=== PATIENT | male | born 1955 | race Two or more races ===

== ENCOUNTER 2022-03-25 00:47 | Inpatient (IN) | payer MEDICARE, OTHER ==
[~2022-03-25] VITALS: Ht 172.7 cm; Wt 76.2 kg
[2022-03-25] MEDS ORDERED: SENN-18 PO (01:18)
[2022-03-25] MEDS ORDERED: HYDR-4077 PO (01:18)
[2022-03-25] MEDS ORDERED: COLL30OI TOP (01:18)
[2022-03-25] MEDS ORDERED: CHOL100045 PO (01:18)
[2022-03-25] MEDS ORDERED: CARV25TA2 PO (01:18)
[2022-03-25] MEDS ORDERED: FAMO-132 PO (01:18)
[2022-03-25] MEDS ORDERED: POLY17PO52 PO (01:18)
[2022-03-25] MEDS ORDERED: ACET-2154 PO (01:18)
[2022-03-25] MEDS ORDERED: HYDR-3972 PO (01:18)
[2022-03-25] MEDS ORDERED: DORZ10DR10 EACHEYE (01:18)
[2022-03-25] MEDS ORDERED: ASPI81TA31 PO (01:18)
[2022-03-25] MEDS ORDERED: INSU100V7 SQ (01:18)
[2022-03-25] MEDS ORDERED: MULT-213 PO (01:18)
[2022-03-25] MEDS ORDERED: CALC-494 PO (01:18)
[2022-03-25] MEDS ORDERED: AMLO10TA59 PO (01:18)
[2022-03-25] MEDS ORDERED: ATOR20TA PO (01:18)
[2022-03-25] MEDS ORDERED: L. A1TAB16 PO (01:18)
[2022-03-25] MEDS ORDERED: FERR325T28 PO (01:18)
[2022-03-25] MEDS ORDERED: CLOP75TA33 PO (01:18)
[2022-03-25] MEDS ORDERED: MIRT-93 PO (01:18)
[2022-03-25] MEDS ORDERED: HYDR-894 PO (01:18)
--- NOTE | 2022-03-25 02:24 | NUR ---
pt placed in room 2a, pt came from [facility] and rehab pt had an unwitnessed fall. Was sent here by his primary md.
--- NOTE | 2022-03-25 03:32 | NUR ---
call to radiology for cat scan.
[2022-03-25 03:46] LABS: HEMATOCRIT 23.4 % (36.7-47.1); MEAN CORPUSCULAR HEMOGLOBIN 30.6 uug (23.8-33.4); MEAN CORPUSCULAR VOLUME 93.2 fL (73.0-96.2); PLATELET COUNT (AUTO) 312 K/uL (152-348)
[2022-03-25 03:50] LABS: CARBON DIOXIDE 19 mmol/L (21-32); CHLORIDE 104 mmol/L (98-107); CREATININE 2.7 mg/dL (0.6-1.3); GLUCOSE 169 mg/dL (74-106); POTASSIUM 4.7 mmol/L (3.5-5.1); UREA NITROGEN, BLOOD 66 mg/dL (7-18)
[2022-03-25 03:59] LABS: ALANINE AMINOTRANSFERASE 24 U/L (16-63); ALKALINE PHOSPHATASE 100 U/L (50-136); ASPARTATE AMINOTRANSFERASE 11 U/L (15-37); BILIRUBIN,DIRECT 0.1 mg/dL (0.0-0.2); BILIRUBIN,TOTAL 0.2 mg/dL (0.2-1.0); TOTAL PROTEIN, SERUM 7.4 g/dL (6.4-8.2)
--- NOTE | 2022-03-25 04:00 | NUR ---
pt taken to cat scan.
--- NOTE | 2022-03-25 04:12 | NUR ---
pt returned from cat scan.
--- NOTE | 2022-03-25 05:52 | NUR ---
Dr. Restrepo spoke with [facility] for admission.
[2022-03-25] MEDS ORDERED: DEXTROSE 50% 50 ML DISP.SYRIN IV PRN (06:00)
[2022-03-25] MEDS ORDERED: hydrALAZINE HCL 50 MG TABLET PO PRN (06:00)
[2022-03-25] MEDS ORDERED: IV NS 1000 ML 1,000 ML IV PRN (06:00)
[2022-03-25] MEDS ORDERED: ACETAMINOPHEN 325 MG TABLET PO PRN (06:00)
[2022-03-25] MEDS ORDERED: MIRALAX 17 GM POWD.PACK PO PRN (06:00)
[2022-03-25] MEDS ORDERED: ONDANSETRON 4 MG/2 ML VIAL IV PRN (06:00)
[2022-03-25] MEDS ORDERED: HYDROCODONE/APAP 5-325MG TABLET PO PRN (06:00)
[2022-03-25] MEDS ORDERED: MAGNESIUM HYDROXIDE 30 ML LIQUID UDC PO PRN (06:00)
[2022-03-25] MEDS ORDERED: INSULIN REGULAR, HUMAN 300 UNITS/3 ML VIAL SQ PRN (06:00)
[2022-03-25] MEDS ORDERED: ACETAMINOPHEN 325 MG TABLET-SA PATIENTS-PAIN ONLY PO PRN (06:00)
[2022-03-25] MEDS: CEFTRIAXONE 1 G in IV DEXTROSE 5% 50 ML IV SCH (06:15)
--- NOTE | 2022-03-25 06:35 | NUR ---
call to [facility] for Dr. Restrepo to give update on status of pt.
--- NOTE | 2022-03-25 06:40 | NUR ---
[facility] called back for Dr. Restrepo.
[2022-03-25] MEDS ORDERED: CEFTRIAXONE /D5W 50ML IVPB **ER PYXIS IV ONE (07:20)
[2022-03-25] MEDS: BLOOD SUGAR DIAGNOSTIC 1 EACH STRIP VI SCH ×4 (07:38→20:23)
--- NOTE | 2022-03-25 07:42 | NUR ---
PT WAS TRANSFERED TO ROOM #312. REPORT WAS GIVEN TO RN M/S.
[2022-03-25 08:00] VITALS: BP 133/64
--- NOTE | 2022-03-25 08:04 | NUR ---
ADMITTED FROM [facility] A 66 YO MALE WITH ADM DX OF SP MECHANICAL FALL AWAKE ALERT BUT CONFUSED X2. DENIES PAIN, NO SIGNS OF DISTRESS. ADMISSION ASSESSMENT INITIATED
[2022-03-25] MEDS: SENNOSIDES 1 TABLET PO SCH ×2 (08:55→16:41)
[2022-03-25] MEDS: AMLODIPINE 10 MG TABLET PO SCH (08:55)
[2022-03-25] MEDS: ACIDOPHILUS/BULGARICUS CHEW TAB PO SCH (08:55)
[2022-03-25] MEDS: PANTOPRAZOLE SODIUM 40 MG VIAL IV SCH (08:55)
[2022-03-25] MEDS: CALCIUM CARBONATE 500 MG TABLET PO SCH (08:55)
[2022-03-25] MEDS: IV NS 1000 ML 1,000 ML IV SCH ×2 (08:56→20:15)
[2022-03-25] MEDS: MULTIVIT, IRON, MIN NO. 8, FA TABLET PO SCH (08:56)
[2022-03-25] MEDS: CARVEDILOL 25 MG TABLET PO SCH ×2 (08:56→16:42)
[2022-03-25] MEDS: REMEDY ESSENTIAL ZINC PASTE 113 GM TP PRN (08:57)
[2022-03-25] MEDS ORDERED: ASPIRIN 81 MG TAB.CHEW PO SCH (09:00)
[2022-03-25] MEDS ORDERED: CHOLECALCIFEROL 1,000 UNIT TABLET PO SCH (09:00)
[2022-03-25] MEDS ORDERED: Medication Not On Formulary EA (Multivitamins W-Minerals (Multivitamin With Minerals) 1 PO SCH (09:00)
[2022-03-25] MEDS ORDERED: CLOPIDOGREL 75 MG TABLET PO SCH (09:00)
[2022-03-25] MEDS ORDERED: Medication Not On Formulary EA (Cholecalciferol (Vitamin D3) (Vitamin D3) 1 CAP) PO SCH (09:00)
[2022-03-25] MEDS ORDERED: [UNRECOGNIZED DRUG - OTHER] PO SCH (09:00)
[2022-03-25] MEDS: DORZOLAMIDE 2% OPHT DROP 10 ML BOTTLE EACHEYE SCH ×2 (11:15→20:11)
[2022-03-25] MEDS: INSULIN REGULAR, HUMAN 300 UNIT/3 ML VIAL SQ PRN ×2 (11:44→16:43)
[2022-03-25 12:00] VITALS: BP 136/50
--- NOTE | 2022-03-25 12:45 | NUR ---
SPEECH EVAL COMPLETED PER ST OK TO START ON SOFT DIET AND THIN LIQUID
--- NOTE | 2022-03-25 13:04 | NUR ---
WOUND CARE CONSULT: PT EATING AT THIS TIME. REVIEWED CHART, NURSING DOCUMENTATION AND PHOTOS WHICH INDICATE LEFT HEEL WOUND AND SACRAL SCAR, PRESENT ON ADMISSION. CONSULT CALLED TO DR MCGRAW. RECOMMENDATIONS MADE FOR SKIN PROTECTION. DISCUSSED WITH NURSING STAFF. IN AGREEMENT WITH PLAN OF CARE. Addendum: 03/25/22 at 1308 by SIMA FERNANDEZ RN EXCORIATION NOTED TO RT HIP AREA ADMISSION PHOTOS.
[2022-03-25 16:00] VITALS: BP 135/54
--- NOTE | 2022-03-25 17:12 | NUR ---
RESULTS OF REPEAT CT HEAD DONE, NEURO STATUS REMAINS UNCHANGED. RESPONDING WELL VERBALLY KNOWS ON HIS NAME, DENIES MEJÍA OR NO C/O NV. BP 112/47 COREG HELD.. CONTINUE TO OBSERVE
[2022-03-25 17:59] LABS: *OCCULT BLOOD STOOL NEGATIVE (NEGATIVE)
[2022-03-25 20:00] VITALS: BP 117/48
[2022-03-25] MEDS: ATORVASTATIN 20 MG TABLET PO SCH (20:11)
[2022-03-25] MEDS: MIRTAZAPINE 15 MG TABLET PO SCH (20:11)
[2022-03-25 21:09] LABS: HEMATOCRIT 22.1 % (36.7-47.1)
[2022-03-26] VITALS (9 sets, daily range): BP systolic 119–151; BP diastolic 47–79
--- NOTE | 2022-03-26 05:26 | NUR ---
Slept throughout the night. Denies SOB or pain. IV site intact. Able to collect urine sample, sent to lab. Tolerated all medications given. Safety maintained throughout the shift. Will endorse to day shift.
[2022-03-26] MEDS: CEFTRIAXONE 1 G in IV DEXTROSE 5% 50 ML IV SCH (06:08)
[2022-03-26] MEDS: IV NS 1000 ML 1,000 ML IV SCH ×2 (06:08→17:36)
[2022-03-26] MEDS: BLOOD SUGAR DIAGNOSTIC 1 EACH STRIP VI SCH ×4 (06:30→21:36)
[2022-03-26 07:10] LABS: MEAN CORPUSCULAR HEMOGLOBIN 31.1 uug (23.8-33.4); PLATELET COUNT (AUTO) 296 K/uL (152-348)
[2022-03-26 07:20] LABS: HEMATOCRIT 19.9 % (36.7-47.1)
[2022-03-26 07:21] LABS: *BILIRUBIN,URIN NEGATIVE (NEGATIVE); *BLOOD, URINE NEGATIVE (NEGATIVE); *CLARITY,URINE CLEAR (CLEAR); *COLOR,URINE YELLOW (YELLOW); *KETONES,URINE NEGATIVE (NEGATIVE); *UROBILINOGEN,URINE 0.2 E.U./dl (NORMAL); LEUKOCYTE ESTERASE ,URINE NEGATIVE (NEGATIVE); NITRITE, URINE NEGATIVE (NEGATIVE); UGLUCOSE NEGATIVE (NEGATIVE)
[2022-03-26 07:33] LABS: BILIRUBIN,TOTAL 0.1 mg/dL (0.2-1.0); CREATININE 2.5 mg/dL (0.6-1.3); MAGNESIUM 1.9 mg/dL (1.8-2.4); PHOSPHOROUS 3.7 mg/dL (2.5-4.9); POTASSIUM 4.9 mmol/L (3.5-5.1); TOTAL PROTEIN, SERUM 6.6 g/dL (6.4-8.2)
[2022-03-26 07:46] LABS: *CREATININE,URINE 59.5 mg/dL (30-125); *URINE TOTAL PROTEIN RANDOM 110.7 mg/dL (<150/24HR)
--- NOTE | 2022-03-26 07:56 | NUR ---
DR CASILLAS NOTIFIED OF LOW HH WITH ORDER TO TRANSFUSE 1 UNIT PRBC
--- NOTE | 2022-03-26 08:00 | NUR ---
AWAKE ALERT AND VERBALLY RESPONSIVE BUT REMAINS CONFUSED X3 DENIES PAIN OR SOB. WILL CONTINUE TO OBSERVE
[2022-03-26] MEDS: ACIDOPHILUS/BULGARICUS CHEW TAB PO SCH (08:43)
[2022-03-26] MEDS: MULTIVIT, IRON, MIN NO. 8, FA TABLET PO SCH (08:43)
[2022-03-26] MEDS: CALCIUM CARBONATE 500 MG TABLET PO SCH (08:43)
[2022-03-26] MEDS: SENNOSIDES 1 TABLET PO SCH ×2 (08:43→16:39)
[2022-03-26] MEDS: CARVEDILOL 25 MG TABLET PO SCH ×2 (08:44→17:12)
[2022-03-26] MEDS: AMLODIPINE 10 MG TABLET PO SCH (08:44)
[2022-03-26] MEDS: REMEDY ESSENTIAL ZINC PASTE 113 GM TP PRN (08:45)
[2022-03-26] MEDS: PANTOPRAZOLE SODIUM 40 MG VIAL IV SCH ×2 (08:47→21:16)
[2022-03-26] MEDS: CHOLECALCIFEROL 1,000 UNIT TABLET PO SCH (08:47)
[2022-03-26] MEDS: DORZOLAMIDE 2% OPHT DROP 10 ML BOTTLE EACHEYE SCH ×2 (08:48→21:16)
[2022-03-26] MEDS ORDERED: INSULIN REGULAR, HUMAN 300 UNITS/3 ML VIAL SQ PRN (09:45)
[2022-03-26] MEDS ORDERED: DEXTROSE 50% 50 ML DISP.SYRIN IV PRN (09:45)
--- NOTE | 2022-03-26 11:45 | NUR ---
TRIED TO REACH DAUGHTER AGAIN FOR THE THIRD TIME REGARDING BLOOD TRANSFUSION CONSENT AWAITING CALL. BACK. DR CASILLAS CALLED WITH ORDER TO GIVE BLOOD A MEDICAL NECESSITY
[2022-03-26] MEDS: INSULIN REGULAR, HUMAN 300 UNIT/3 ML VIAL SQ PRN ×2 (11:59→21:33)
--- NOTE | 2022-03-26 12:00 | NUR ---
TRIED TO REACH SON TO HELP GET HOLD OF SISTER DARIN AND SAID WILL CALL BACK
--- NOTE | 2022-03-26 12:32 | NUR ---
BLOOD TRANSFUSION STARTED ORDERED CLOSELY MONITORED
--- NOTE | 2022-03-26 12:46 | NUR ---
DAUGHTER DARIN CALLED AND GAVE CONSENT FOR BLOOD TRANSFUSION WITNESS BY CHARGE NURSE
--- NOTE | 2022-03-26 12:56 | NUR ---
NO BLOOD TRANSFUSIONREACTION NOTED WILL CONTINUE TX AND OBSERVE
--- NOTE | 2022-03-26 16:00 | NUR ---
BLOOD TRANSFUSION COMPLETED WITHOUT REACTION
[2022-03-26 16:29] LABS: HEMATOCRIT 26.5 % (36.7-47.1)
--- NOTE | 2022-03-26 17:12 | NUR ---
COREG GIVEN WITH SIPS OF WATER. BP 157/61, HR=67
--- NOTE | 2022-03-26 18:31 | NUR ---
PATIENT WENT O OR FOR EGD ACCOMPANIED BY OR STAFF
[2022-03-26] MEDS ORDERED: PROPOFOL 200 MG/20 ML BOTTLE IV ONE (19:22)
[2022-03-26] MEDS ORDERED: LIDOCAINE-MPF 2% 5 ML VIAL IJ ONE (19:22)
--- NOTE | 2022-03-26 20:00 | NUR ---
patient arrived from OR, fully awake, alert and oriented x4, on oxygen via nasal cannula titrated to 2L saturating at 100%. Normal saline administered at 90cc/hr as ordered. Kept NPO as ordered except medications, to start on regular diet tomorrow as ordered. Routine post op care done.
[2022-03-26 21:07] LABS: HEMATOCRIT 26.1 % (36.7-47.1)
[2022-03-26] MEDS: ATORVASTATIN 20 MG TABLET PO SCH (21:17)
[2022-03-26] MEDS: MIRTAZAPINE 15 MG TABLET PO SCH (21:17)
[2022-03-26] MEDS: METOCLOPRAMIDE HCL 10 MG/2 ML VIAL IV SCH (21:18)
[2022-03-27 04:22] VITALS: BP 151/63
[2022-03-27] MEDS: IV NS 1000 ML 1,000 ML IV SCH (04:36)
[2022-03-27] MEDS: CEFTRIAXONE 1 G in IV DEXTROSE 5% 50 ML IV SCH (05:37)
[2022-03-27] MEDS: METOCLOPRAMIDE HCL 10 MG/2 ML VIAL IV SCH (05:44)
[2022-03-27] MEDS: AMLODIPINE 10 MG TABLET PO SCH ×2 (05:49→08:24)
[2022-03-27] MEDS: BLOOD SUGAR DIAGNOSTIC 1 EACH STRIP VI SCH ×4 (06:28→21:31)
--- NOTE | 2022-03-27 06:38 | NUR ---
Slept well, no shortness of breath within the shift, on room air since post op, saturating above 95%, Started to drink small amount of water with medications,. tolerated well. Dressing of gangrenous wound at left heel done with Ns, xeroform and kerlex bandage.
[2022-03-27 06:55] LABS: HEMATOCRIT 24.7 % (36.7-47.1)
[2022-03-27] MEDS ORDERED: PANTOPRAZOLE SODIUM 40 MG TABLET.DR PO SCH ×2 (07:00→10:45)
--- NOTE | 2022-03-27 08:00 | NUR ---
AWAKE ALERT AND VERBALLY RESPONSIVE ON OCCASION NO SS OF PAIN OR DISTRESS. CONTINUE PLAN OF CARE WOUND CARE AND IV ANTIBIOTIC
[2022-03-27] MEDS: CHOLECALCIFEROL 1,000 UNIT TABLET PO SCH (08:23)
[2022-03-27] MEDS: ACIDOPHILUS/BULGARICUS CHEW TAB PO SCH (08:24)
[2022-03-27] MEDS: CALCIUM CARBONATE 500 MG TABLET PO SCH (08:24)
[2022-03-27] MEDS: MULTIVIT, IRON, MIN NO. 8, FA TABLET PO SCH (08:24)
[2022-03-27] MEDS: PANTOPRAZOLE SODIUM 40 MG VIAL IV SCH (08:27)
[2022-03-27] MEDS: DORZOLAMIDE 2% OPHT DROP 10 ML BOTTLE EACHEYE SCH ×2 (08:27→21:28)
[2022-03-27] MEDS: SENNOSIDES 1 TABLET PO SCH ×2 (08:28→17:24)
[2022-03-27] MEDS: REMEDY ESSENTIAL ZINC PASTE 113 GM TP PRN (08:29)
[2022-03-27] MEDS ORDERED: PERMETHRIN 5% CREAM 60 GM TUBE TP ONE (09:00)
[2022-03-27] MEDS: CARVEDILOL 25 MG TABLET PO SCH ×2 (10:48→17:24)
[2022-03-27 11:34] VITALS: BP 109/47
--- NOTE | 2022-03-27 12:00 | NUR ---
NO ACUTE CHANGE FROM MORNING ASSESSMENT
[2022-03-27] MEDS: METOCLOPRAMIDE HCL 5 MG TABLET PO SCH ×2 (12:03→17:24)
[2022-03-27] MEDS: INSULIN REGULAR, HUMAN 300 UNIT/3 ML VIAL SQ PRN ×3 (12:06→21:34)
[2022-03-27 13:16] LABS: HEMATOCRIT 25.7 % (36.7-47.1)
--- NOTE | 2022-03-27 13:40 | NUR ---
SEEN BY DR VERDE FOR WOUND CONSULT SEE NOTES
[2022-03-27] MEDS: VANCOMYCIN IV 750 MG in IV DEXTROSE 5% 250 ML IV SCH (14:14)
[2022-03-27] MEDS: MEROPENEM 1 G in IV NORMAL SALINE 100 ML IV SCH (14:14)
[2022-03-27 15:30] VITALS: BP 117/41
[2022-03-27] MEDS: PANTOPRAZOLE SODIUM 40 MG TABLET.DR PO SCH (17:24)
--- NOTE | 2022-03-27 17:50 | NUR ---
STARTED ON MERREM AND VANCO NO SS OF ALLERGY REACTION
[2022-03-27 20:17] LABS: HEMATOCRIT 26.1 % (36.7-47.1)
[2022-03-27] MEDS: MIRTAZAPINE 15 MG TABLET PO SCH (21:27)
[2022-03-27] MEDS: ATORVASTATIN 20 MG TABLET PO SCH (21:28)
[2022-03-27 21:30] VITALS: BP 140/60
[2022-03-28] MEDS: MEROPENEM 1 G in IV NORMAL SALINE 100 ML IV SCH ×2 (01:18→14:34)
[2022-03-28 04:52] VITALS: BP 136/56
[2022-03-28 06:06] LABS: A/G RATIO 0.6 (0.7-1.7); ALBUMIN 2.1 g/dL (2.9-4.4); ALPHA-1-GLOBULIN 0.3 g/dL (0.0-0.4); ALPHA-2-GLOBULIN 0.9 g/dL (0.4-1.0); GAMMA GLOBULIN 1.4 g/dL (0.4-1.8); GLOBULIN, TOTAL 3.6 g/dL (2.2-3.9); M-SPIKE Not Observed g/dL (Not Observed)
[2022-03-28] MEDS: PANTOPRAZOLE SODIUM 40 MG TABLET.DR PO SCH ×2 (06:09→16:44)
[2022-03-28 06:42] LABS: HEMATOCRIT 23.2 % (36.7-47.1); MEAN CORPUSCULAR HEMOGLOBIN 30.9 uug (23.8-33.4); MEAN CORPUSCULAR VOLUME 91.6 fL (73.0-96.2); PLATELET COUNT (AUTO) 284 K/uL (152-348)
[2022-03-28] MEDS: METOCLOPRAMIDE HCL 5 MG TABLET PO SCH ×3 (06:47→16:44)
[2022-03-28] MEDS: BLOOD SUGAR DIAGNOSTIC 1 EACH STRIP VI SCH ×4 (06:48→21:39)
[2022-03-28] MEDS: INSULIN REGULAR, HUMAN 300 UNIT/3 ML VIAL SQ PRN ×3 (07:00→16:47)
[2022-03-28 07:30] LABS: CREATININE 2.5 mg/dL (0.6-1.3); MAGNESIUM 1.5 mg/dL (1.8-2.4); PHOSPHOROUS 2.9 mg/dL (2.5-4.9); POTASSIUM 4.2 mmol/L (3.5-5.1)
[2022-03-28] MEDS: DORZOLAMIDE 2% OPHT DROP 10 ML BOTTLE EACHEYE SCH ×2 (08:58→22:24)
[2022-03-28] MEDS: CARVEDILOL 25 MG TABLET PO SCH ×2 (08:58→16:44)
[2022-03-28] MEDS: CALCIUM CARBONATE 500 MG TABLET PO SCH (08:59)
[2022-03-28] MEDS: MULTIVIT, IRON, MIN NO. 8, FA TABLET PO SCH (08:59)
[2022-03-28] MEDS: ACIDOPHILUS/BULGARICUS CHEW TAB PO SCH (08:59)
[2022-03-28] MEDS: CHOLECALCIFEROL 1,000 UNIT TABLET PO SCH (08:59)
[2022-03-28] MEDS: SENNOSIDES 1 TABLET PO SCH ×2 (08:59→16:44)
[2022-03-28] MEDS: ARGININE/GLUTAMINE/CALCIUM BMB 1 EACH POWD.PACK PO SCH ×2 (09:02→16:45)
[2022-03-28] MEDS: AMLODIPINE 10 MG TABLET PO SCH (09:31)
[2022-03-28 09:40] LABS: BILIRUBIN,TOTAL 0.1 mg/dL (0.2-1.0); CREATININE 2.5 mg/dL (0.6-1.3); POTASSIUM 4.3 mmol/L (3.5-5.1); TOTAL PROTEIN, SERUM 6.1 g/dL (6.4-8.2)
[2022-03-28] MEDS: MAGNESIUM SULFATE/D5W 100 ML IV SCH ×2 (10:10→11:01)
--- NOTE | 2022-03-28 12:55 | NUR ---
PATIENT AWAKE ALERT AND VERBALLY RESPONSIVE NO C/O PAIN AT THIS TIME. WOUND DRESSING CHANGE ON LEFT HEEL. TOLERATED WELL. INFUSED MG iV 2 BAGS ,NO A/R NOTED. COMPLIANT WITH MEDICATION. MIDLINE REMOVED BY PATIENT .INSERTED NEW IV LINE ON RIGHT FA.cALL LIGHT WITH IN REACH.
[2022-03-28] MEDS: VANCOMYCIN IV 750 MG in IV DEXTROSE 5% 250 ML IV SCH (14:34)
[2022-03-28 14:35] VITALS: BP 132/55
[2022-03-28 20:00] VITALS: BP 126/59
[2022-03-28] MEDS: ATORVASTATIN 20 MG TABLET PO SCH (22:24)
[2022-03-28] MEDS: MIRTAZAPINE 15 MG TABLET PO SCH (22:24)
[2022-03-29] MEDS: MEROPENEM 1 G in IV NORMAL SALINE 100 ML IV SCH (02:39)
[2022-03-29 04:00] VITALS: BP 132/71
[2022-03-29] MEDS: PANTOPRAZOLE SODIUM 40 MG TABLET.DR PO SCH (06:35)
[2022-03-29] MEDS: BLOOD SUGAR DIAGNOSTIC 1 EACH STRIP VI SCH (06:35)
[2022-03-29 07:32] LABS: HEMATOCRIT 25.3 % (36.7-47.1); MEAN CORPUSCULAR HEMOGLOBIN 31.4 uug (23.8-33.4); MEAN CORPUSCULAR VOLUME 92.3 fL (73.0-96.2); PLATELET COUNT (AUTO) 286 K/uL (152-348)
[2022-03-29 07:47] LABS: BILIRUBIN,TOTAL 0.3 mg/dL (0.2-1.0); CREATININE 2.4 mg/dL (0.6-1.3); POTASSIUM 4.5 mmol/L (3.5-5.1); TOTAL PROTEIN, SERUM 6.5 g/dL (6.4-8.2)
--- NOTE | 2022-03-29 08:00 | NUR ---
received patient from PM shift, patient a/op x4, pleasant, not in pain or distress. Asked for banana 2 times, ate 2 bananas. Got his morning routine meds. Resting in bed
[2022-03-29] MEDS: MULTIVIT, IRON, MIN NO. 8, FA TABLET PO SCH (08:42)
[2022-03-29] MEDS: SENNOSIDES 1 TABLET PO SCH (08:42)
[2022-03-29] MEDS: CALCIUM CARBONATE 500 MG TABLET PO SCH (08:42)
[2022-03-29] MEDS: CHOLECALCIFEROL 1,000 UNIT TABLET PO SCH (08:42)
[2022-03-29] MEDS: ACIDOPHILUS/BULGARICUS CHEW TAB PO SCH (08:42)
[2022-03-29] MEDS: AMLODIPINE 10 MG TABLET PO SCH (08:52)
[2022-03-29] MEDS: CARVEDILOL 25 MG TABLET PO SCH (08:53)
[2022-03-29] MEDS: METOCLOPRAMIDE HCL 5 MG TABLET PO SCH (08:54)
[2022-03-29] MEDS: ARGININE/GLUTAMINE/CALCIUM BMB 1 EACH POWD.PACK PO SCH (09:26)
[2022-03-29] MEDS: DORZOLAMIDE 2% OPHT DROP 10 ML BOTTLE EACHEYE SCH (09:27)
[2022-03-29] MEDS ORDERED: PANT40TA2 PO (10:38)
[2022-03-29 12:00] VITALS: BP 146/62
--- NOTE | 2022-03-29 14:30 | NUR ---
CHANGED PATIENT'S LEFT FOOT DRESSING, TOOK PICTURES OF THE WOUND, OLD SCABS ON SKIN, COCCYX AREA. PATIENT HAD NO DISTRESS OR PAIN. PATIENT GOT PICKED UP VIA [facility] AT 1350.
--- NOTE | 2022-03-29 15:12 | NUR ---
PATIENT GOT PICKED UP FROM [facility]IA [facility] TO TRANSFER TO [facility] AT 1350
== END 2022-03-29 13:50 | DRG 85 ==
LOC: ER 00:58 → MEDSURG3 07:35
PROVIDERS: ADMIT Internal Medicine; ATTEND Internal Medicine
PROC: 30233N1 Transfusion of Nonautologous Red Blood Cells into Peripheral Vein, Percutaneous Approach (ICD-10-PCS; principal; 2022-03-26)
PROC: 0DB68ZX Excision of Stomach, Via Natural or Artificial Opening Endoscopic, Diagnostic (ICD-10-PCS; 2022-03-26)
PROC: 05H533Z Insertion of Infusion Device into Right Subclavian Vein, Percutaneous Approach (ICD-10-PCS; 2022-03-27)
PROC: B546ZZA Ultrasonography of Right Subclavian Vein, Guidance (ICD-10-PCS; 2022-03-27)
DX: S06.5X0A Traumatic subdural hemorrhage without loss of consciousness, initial encounter (principal); N17.0 Acute kidney failure with tubular necrosis; E44.0 Moderate protein-calorie malnutrition; L97.428 Non-pressure chronic ulcer of left heel and midfoot with other specified severity; D62 Acute posthemorrhagic anemia; E11.43 Type 2 diabetes mellitus with diabetic autonomic (poly)neuropathy; R40.2362 Coma scale, best motor response, obeys commands, at arrival to emergency department; R40.2242 Coma scale, best verbal response, confused conversation, at arrival to emergency department; R40.2142 Coma scale, eyes open, spontaneous, at arrival to emergency department; W06.XXXA Fall from bed, initial encounter; Y92.122 Bedroom in nursing home as the place of occurrence of the external cause; K31.84 Gastroparesis; D72.829 Elevated white blood cell count, unspecified; E11.22 Type 2 diabetes mellitus with diabetic chronic kidney disease; E11.65 Type 2 diabetes mellitus with hyperglycemia; E78.5 Hyperlipidemia, unspecified; E88.09 Other disorders of plasma-protein metabolism, not elsewhere classified; N18.9 Chronic kidney disease, unspecified; E11.51 Type 2 diabetes mellitus with diabetic peripheral angiopathy without gangrene; E11.21 Type 2 diabetes mellitus with diabetic nephropathy; D63.8 Anemia in other chronic diseases classified elsewhere; I70.244 Atherosclerosis of native arteries of left leg with ulceration of heel and midfoot; S70.211A Abrasion, right hip, initial encounter; K29.70 Gastritis, unspecified, without bleeding; L90.5 Scar conditions and fibrosis of skin; B86 Scabies; Z79.4 Long term (current) use of insulin; Z89.511 Acquired absence of right leg below knee; Z86.73 Personal history of transient ischemic attack (TIA), and cerebral infarction without residual deficits; Z68.25 Body mass index [BMI] 25.0-25.9, adult
CPT/HCPCS: 36415; 70450; 72125; 76770; 83735; 83970; 84100; 84155; 84156; 84165; 84300; 84484; 85018; 85025; 85730; 86850; 86900; 86901; 86920; 87070; 87077; 93005; A4663; A6213; C1758; C9113; G0378; J0696; J1815; J2185; J2765; J3370; J3475; J3490; J7040; J7050; J8597; P9016